=== PATIENT | female | born 1945 | race Caucasian/White ===

== ENCOUNTER 2020-10-12 12:27 | Emergency (ER) | payer MEDICARE, SELFPAY ==
[2020-10-12 12:35] VITALS: BP 155/58; PULSE 86; RESP 16; TEMP 36.6; O2SAT 96
[2020-10-12 13:00] VITALS: BP 173/93; PULSE 82; RESP 14; O2SAT 96
--- NOTE | 2020-10-12 13:23 | ECG_ITS ---
Measurements Intervals [place] Rate: 80 P: 56 NM: 132 QRS: 24 QRSD: 93 T: 38 QT: 390 QTc: 450 Interpretive Statements SINUS RHYTHM INCOMPLETE RIGHT BUNDLE BRANCH BLOCK MINIMAL Q WAVES- INFERIOR LEADS BORDERLINE ECG Electronically Signed On 10-12-2020 15:01:34 RECEIVING LEAD by Yan Carlin D.O.
[2020-10-12 13:50] LABS: Basophils Absolute Auto 0.03 K/mm3 (0.00-0.10); Basophils Percent Auto 0.3 % (0.0-1.0); Eosinophils Absolute Auto 0.11 K/mm3 (0.02-0.50); Hematocrit 40.9 % (35.0-42.0); Hemoglobin 13.8 g/dL (11.7-13.8); Immature Granulocyte Absolute 0.03 K/mm3 (0.00-0.00); Immature Granulocyte Percent A 0.3 % (0.0-0.0); Lymphocytes Absolute Auto 2.43 K/mm3 (1.10-4.50); Lymphocytes Percent Auto 22.8 % (18.0-42.0); Mean Corpuscular HGB Conc 33.7 g/dL (32.0-36.0); Mean Corpuscular Hemoglobin 29.9 pg (27.0-31.0); Mean Corpuscular Volume 88.5 fL (78.0-102.0); Mean Platelet Volume 10.4 fl (9.2-11.8); Monocytes Absolute Auto 0.67 K/mm3 (0.10-0.90); Monocytes Percent Auto 6.3 % (2.0-11.0); Neutrophils Absolute Auto 7.4 K/mm3 (1.7-7.2); Neutrophils Percent Auto 69.3 % (50.0-70.0); Platelet Count Result 237 K/mm3 (150-420); Red Blood Count 4.62 M/mm3 (4.20-5.40); Red Cell Distribution Width 13.2 % (11.6-14.4); White Blood Count 10.7 K/mm3 (4.8-10.8)
[2020-10-12 14:00] VITALS: BP 171/68; PULSE 78; RESP 17; O2SAT 95
[2020-10-12 14:12] LABS: Alanine Aminotransferase 26 U/L (14-59); Albumin Level 3.5 g/dL (3.4-5.0); Alkaline Phosphatase 61 U/L (46-116); Anion Gap 9 mmol/L (8-16); Aspartate Amino Transferase 13 U/L (15-37); Bilirubin,Total 0.4 mg/dL (0.00-1.00); Blood Urea Nitrogen 10 mg/dL (7-18); Calcium 8.9 mg/dL (8.5-10.1); Carbon Dioxide 27 mmol/L (21-32); Chloride 106 mmol/L (98-108); Estimated CRCL calculation 37 ml/min; Estimated Glomerular Filt Rate 58; Glucose 83 mg/dL (70-99); Magnesium 1.9 mg/dL (1.8-2.4); Osmolality Calculated 292 mOsm/kg (285-295); Potassium 3.4 mmol/L (3.5-5.1); Sodium 142 mmol/L (136-145); Thyroid Stimulating Hormone 1.61 uIU/mL (0.36-3.74); Total Protein 6.9 g/dL (6.4-8.2)
--- NOTE | 2020-10-12 14:29 | ED.DIZZY ---
HPI - Dizziness General Chief Complaint: Dizziness Stated Complaint: headache nausea dizzy pressure in head Source: patient and RN notes reviewed Mode of arrival: wheelchair Limitations: no limitations History of Present Illness MD elicited complaint: dizziness Onset (ago): day(s) (1) Timing: sudden onset Description: room spinning Context: change in body position History of similar symptoms: No Exacerbating factors: change in body position Relieving factors: remaining still and keeping eyes closed Associated symptoms: nausea and vomiting Related Data Home Medications Medication Instructions Recorded Confirmed atorvastatin 40 mg PO DAILY 10/12/20 10/12/20 hydrochlorothiazide 25 mg PO DAILY 10/12/20 10/12/20 Allergies Allergy/AdvReac Type Severity Reaction Status Date / Time morphine Allergy Severe LUNGS Verified 03/31/16 07:52 COLLAPSE Review of Systems Constitutional: Constitutional: Reports no additional constitutional complaints, Denies chills, Denies fever(s) and Denies weakness Eyes: Eyes: Reports no additional eye complaints ENT: Reports system reviewed and no additional complaints, except as documented Cardiovascular: Cardiovascular: Reports no additional cardiovascular complaints and Denies rapid heart rate Respiratory: Respiratory: Reports no additional respiratory complaints Gastrointestinal: Gastrointestinal: Reports as per HPI Genitourinary: Genitourinary: Reports no additional female genitourinary complaints Musculoskeletal: Musculoskeletal: Reports no additional musculoskeletal complaints Neurologic: Reports headache(s), Denies focal weakness and Denies numbness Psychiatric: Psychiatric: Reports no additional psychiatric complaints Endocrine: Endocrine: Reports no additional endocrine complaints Hematologic/Lymphatic: Hematologic/Lymphatic: Reports no additional hematologic/lymphatic complaints PMFSH Past Medical History Medical History (Updated 10/12/20 @ 16:47 by Janes Del Valle MD) Carotid stenosis Hyperlipidemia Hypertension Surgical History Surgical History (Updated 10/12/20 @ 16:47 by Janes Del Valle MD) History of hysterectomy Social History Social History (Updated 10/12/20 @ 16:47 by Janes Del Valle MD) Smoking status: Never smoker Exam Const: General: healthy appearing and no acute distress Nutritional Appearance: well nourished Orientation/consciousness: patient oriented x3 HENMT: Head: normal to inspection Ears: TM's normal bilaterally and external ear abnormal Face and sinus: normal facial exam Mouth: Yes moist mucous membranes Eyes: Conjunctivae: conjunctivae normal Pupils: Equal, round and reactive pupils present EOM: EOMs intact bilaterally Neck: Neck: normal visual inspection Resp: Effort & Inspection: normal respiratory effort Auscultation: clear to auscultation bilaterally Cardio: Rate: regular rate Rhythm: regular rhythm GI: GI Palp: Yes Soft to palpation and No Tenderness to palpation present (GI) Auscultation: normal bowel sounds Back/Spine/Pelvis: Cervical Spine: cervical ROM normal Thoracic/Lumbar Spine: thoraco-lumbar ROM normal Skin: General skin exam: normal color Rashes: no rashes Neuro: General: patient oriented x3, moves all extremities and no focal motor deficits Cranial nerves: Yes Nystagmus not present Speech: normal speech Gait exam (Neuro): Normal gait present Extrem: General: normal to inspection and no clubbing, cyanosis or edema Psych: Appearance: grossly normal and well kempt Mental Status: mental status grossly normal Affect: normal affect Attitude: cooperative Thought content: Yes Normal thought content present Course Vital Signs Vital signs: Vital Signs Temperature 36.6 C 10/12/20 12:35 Pulse Rate 86 10/12/20 12:35 Respiratory Rate 16 10/12/20 12:35 Blood Pressure 155/58 H 10/12/20 12:35 Pulse Oximetry 96 10/12/20 12:35 Temperature 36.6 C 10/12/20 12:35 Pulse
[2020-10-12] MEDS: MECLIZINE HCL 25 MG TABLET PO (14:34)
[2020-10-12 15:00] VITALS: BP 157/65; PULSE 73; RESP 20; O2SAT 98
[2020-10-12 15:27] VITALS: BP 169/58; PULSE 88; RESP 17; O2SAT 100
== END 2020-10-12 15:28 | disposition home or self-care (01) ==
PROVIDERS: Emergency Provider Emergency Medicine; PCP Family Medicine
DX: E87.6 Hypokalemia (principal); H81.10 Benign paroxysmal vertigo, unspecified ear; E78.5 Hyperlipidemia, unspecified; I10 Essential (primary) hypertension
CPT/HCPCS: 36415; 80053; 83735; 84443; 85025; 93005; 99283; A9270

== ENCOUNTER 2022-12-19 09:07 | Outpatient (CLI) | payer MEDICARE, SELFPAY ==
--- NOTE | ~2022-12-19 | DEXA_ITS ---
Bone Density Report Name: MANJINDER TROTTER Age: 77 Sex: Female Ethnicity: White Date of : 1945 Indication: postmenopausal; screening for osteoporosis; cancer; hysterectomy; Referring Provider: QuintinShamir Mitchell Study: Bone densitometry was performed. Exam Date: December 19, 2022 Accession number: [id number] Bone Density: Region BMD T-score Z-score Classification AP Spine(L1-L4) 0.655 -3.6 -1.1 Osteoporosis Femoral Neck (Left) 0.519 -3.0 -0.8 Osteoporosis Total Hip (Left) 0.654 -2.4 -0.5 Osteopenia Femoral Neck (Right) 0.512 -3.0 -0.9 Osteoporosis Total Hip (Right) 0.648 -2.4 -0.5 Osteopenia Femoral Neck Mean 0.516 -3.0 -0.8 Osteoporosis Total Hip Mean 0.651 -2.4 -0.5 Osteopenia World Health Organization criteria for BMD impression classify patients as: Normal (T-score at or above -1.0), Osteopenia (T-score between -1.0 and -2.5), or Osteoporosis (T-score at or below -2.5). 10-year Fracture Risk: FRAX not reported because: Some T-score for Spine Total or Hip Total or Femoral Neck at or below -2.5 Clinical Information Provided by Patient: Smokes Has used the following medications: Vitamin D Has the following medical conditions: Cancer, Hysterectomy Patient maximum height was 62 Menopause Age: 46 No regular weight bearing exercise Does not regularly consume dairy products Onset of menses at age 17 Number of children 5 Impression: The patient has osteoporosis, based on the Total Spine T-score. The patient has risk factors, including: smoking. Discussion: INCREASED RISK OF FRACTURE. BONE DENSITY IS UNDESIRABLY LOW AT ONE OR MORE SKELETAL SITES, CONSISTENT WITH POSTMENOPAUSAL OSTEOPOROSIS. This patient's lowest T-score meets the World Health Organization's (WHO) criteria for osteoporosis at one or more sites (T-score -2.5 or below). In untreated patients, the risk of osteoporotic fracture increases approximately two-fold for each 1.0 SD decrease in T-score. Low bone density is not the only risk factor for fracture; also consider factors such as patient's age, frailty or poor health, risk of falling, risk of injury, previous osteoporotic fracture, family history of osteoporosis, cigarette smoking, low body weight, etc. Not everyone with low bone mineral density has osteoporosis; osteomalacia and other metabolic bone disorders should also be considered. Patients who have osteoporosis should be evaluated for specific diseases and conditions (secondary causes) that may cause or contribute to bone loss. The [place] Association [employer] Clinical Endocrinologists (AACE) and National Osteoporosis Foundation (NOF) recommend pharmacologic intervention for all postmenopausal women whose T-score is in this range. The patient should follow a healthful lifestyle (good nutrition with adequate calcium an
== END 2022-12-19 09:08 | disposition home or self-care (01) ==
LOC: CHSIMG 09:10
PROVIDERS: PCP Family Medicine; Visit Provider Family Medicine
DX: Z78.0 Asymptomatic menopausal state (principal); M85.89 Other specified disorders of bone density and structure, multiple sites; M81.0 Age-related osteoporosis without current pathological fracture
CPT/HCPCS: 77080

== ENCOUNTER 2022-12-27 13:33 | Outpatient (CLI) | payer MEDICARE, SELFPAY ==
--- NOTE | ~2022-12-27 | CT_ITS ---
EXAMINATION: CT lung screening DATE: 12/27/2022 13:50 INDICATION: Personal history of nicotine dependence, current smoker with 27 pack year history TECHNIQUE: Computed tomography (CT) of the chest was performed without intravenous contrast. The dose -length product (DLP) was 53.16 mGy-cm. Automated exposure control and iterative reconstruction techn [employer] were employed. COMPARISON: None FINDINGS: There are multiple bilateral pulmonary nodules. The largest measure 5 mm in the left lower lobe on images 52 and 55. The lungs are free of acute opacities. No pleural effusion or pneumothorax. No pathologically enlarged thoracic lymph nodes are identified. The heart size is normal. There is a 2.6 cm cyst of the left kidney. There is mild thoracic spondylosis. IMPRESSION: 1. Lung-RADS category 2: Benign appearance or behavior. Continue annual screening with noncontrast lo w-dose chest CT in 12 months. Reviewed, dictated and finalized at location B. R TAKERS SUPERVISOR IMPRESSION: 1. Lung-RADS category 2: Benign appearance or behavior. Continue annual screeni ng with noncontrast low-dose chest CT in 12 months.
== END 2022-12-27 13:34 | disposition home or self-care (01) ==
LOC: CHSIMG 13:35
PROVIDERS: PCP Family Medicine; Visit Provider Family Medicine
DX: Z12.2 Encounter for screening for malignant neoplasm of respiratory organs (principal); Z87.891 Personal history of nicotine dependence
CPT/HCPCS: 71271

== ENCOUNTER 2024-04-10 07:54 | Outpatient (CLI) | payer MEDICARE, SELFPAY ==
--- NOTE | ~2024-04-10 | CT_ITS ---
CT Scan of the Chest without Contrast: Clinical Indication: Pulmonary nodule Technique: Contiguous sections were acquired throughout the chest without intravenous contrast. Dose reduction technique was used on this scan by utilizing automated exposure control and iterative recon struction technique. The dose-length product (DLP) was 60.15 mGy-cm. COMPARISON: 12/27/2022 Findings: There is no evidence of any significant mediastinal, hilar or axillary lymphadenopathy. There are ath erosclerotic calcifications of the aorta. There is no evidence of pleural or pericardial effusion. There is stable small subcentimeter pulmonary nodules peripherally in the right upper lobe. Stable 4 mm right middle lobe pulmonary nodule. Stable additional 3 mm inferior right middle lobe pulmonary no dule. Stable 5 mm left lower lobe pulmonary nodule. Images through the upper abdomen reveal no abnormalities. Impression: Stable subcentimeter pulmonary nodules, as detailed above, most likely benign. Reviewed, dictated and finalized at [facility]. Impression: Stable subcentimeter pulmonary nodules, as detailed above, most likely benign.
== END 2024-04-10 07:55 | disposition home or self-care (01) ==
LOC: CHSIMG 07:57
PROVIDERS: PCP Family Medicine; Visit Provider Family Medicine
DX: R91.8 Other nonspecific abnormal finding of lung field (principal)
CPT/HCPCS: 71250

== ENCOUNTER 2024-10-09 09:48 | Outpatient (CLI) | payer MEDICARE, SELFPAY ==
--- NOTE | ~2024-10-09 | CT_ITS ---
EXAMINATION:CT diagnostic chest wo con DATE: 10/09/2024 10:04 INDICATION: Pulmonary nodules. TECHNIQUE: Computed tomography (CT) of the chest was performed without intravenous contrast. Automate d exposure control and iterative reconstruction technique were employed. The dose-length product (DLP ) was 55.15 mGy-cm. COMPARISON: Chest CT 04/10/2024, 12/27/2022 FINDINGS: There is a 4 mm nodule at minor fissure, stable from 12/27/22. There are multiple scattered nodules in the lungs measuring up to 3 mm. There is a 5 mm nodule in left lower lobe, stable from 11/29 12/19. No pleural effusion. The heart size is normal. No pericardial effusion. There is a 2.7 cm cyst in left kidney. There is mild thoracic spondylosis. IMPRESSION: 1. Lung-RADS category 2: Benign appearance or behavior. Continue annual screening with noncontrast lo w-dose chest CT in 12 months. Reviewed, dictated and finalized at location A. NURSE IMPRESSION: 1. Lung-RADS category 2: Benign appearance or behavior. Continue annual screeni ng with noncontrast low-dose chest CT in 12 months.
== END 2024-10-09 09:49 | disposition home or self-care (01) ==
LOC: CHSIMG 09:51
PROVIDERS: PCP Family Medicine; Visit Provider Family Medicine
DX: R91.8 Other nonspecific abnormal finding of lung field (principal)
CPT/HCPCS: 71250

== ENCOUNTER 2025-01-21 10:23 | Outpatient (CLI) | payer MEDICARE, SELFPAY ==
--- OUTSIDE RECORDS SUMMARY | 2025-01-21 12:09 | XMS_ITS | Clinical Summary ---
Author Organization [facility] Address [address] [place] [address] Care Team Providers Care [place] [employer] Name Role Phone Shamir Ribeiro MD Primary Care Provider [phone] Allergies Active Allergy Reactions Criticality Noted Date Comments Morphine Unknown 06/28/2023 Medications cetirizine (ZYRTEC) 10 MG tablet Take 1 tablet (10 mg total) by mouth daily. Active LACTOSE ANHYDROUS by Does not apply route as needed. Active Vitamin D3 (CHOLECALCIFERO L) 50 mcg tablet Take 1 tablet (50 mcg total) by mouth daily. Active atorvastatin (LIPITOR) 40 MG tablet Take 1 tablet (40 mg total) by mouth nightly at bedtime. Active hydroCHLOROthia zide (HYDRODIURIL) 25 MG tablet Take 1 tablet (25 mg total) by mouth every morning. Active vitamin ( PLUS) 27-1 MG tablet Take 1 tablet by mouth daily. Active lactobacillus (FLORANEX) tablet Take 1 tablet by mouth daily. Active Active Problems Problem Noted Date Diagnosed Date Trochanteric bursitis of left hip 10/30/2023 Sebaceous cyst 06/28/2023 Overview (06/28/2023): Added automatically from request for surgery [id number] Hyperlipidemia 06/26/2023 Family History Medical History Relation Comments Cancer Brother 2 Cancer Brother 3 Heart Attack Brother 4 Cancer Father Heart Attack Mother No Known Problems Sister 1 No Known Problems Sister 2 Relation Status Comments Brother 1 Brother 2 Brother 3 Brother 4 Alive Brother 5 Alive Father Mother Sister 1 Alive Sister 2 Alive Social History Tobacco Use Types Packs/Day Years Used Date Smoking Tobacco: Every Day Cigarettes Smokeless Tobacco: Never Tobacco Cessation:Ready to Q uit: Not Asked; Counseling Given: Not Answered Alcohol Use Standard Drinks/Week Comments Yes 0 (1 standard drink = 0.6 oz pur e alcohol) occ. Comments No Sex and Gender Information Value Date Recorded Sex Assigned at Female 10/04/2023 12:37 PM CREATIVE ARTS MUSIC THERAPIST Legal Sex Female 9:39 PM CDT Gender Identity Female 10/04/2023 12:37 PM CREATIVE ARTS MUSIC THERAPIST Sexual Orientation Straight 10/04/2023 12 :37 PM CREATIVE ARTS MUSIC THERAPIST Last Filed Vital Signs Vital Sign Reading Time Taken Comments Blood Pressure 188/60 07/06/2023 10:22 AM CDT Pulse 68 07/06/2023 10:22 AM CDT Temperature 35.7 C (96.2 F) 07/06/2023 10:22 AM CDT Respiratory Rate 20 07/06/2023 10:22 AM CDT Oxygen Saturation 99% 07/06/2023 10:22 AM CDT Inhaled Oxygen Concentration - - Weight 63.5 kg (140 lb) 10/10/2023 9:36 AM CREATIVE ARTS MUSIC THERAPIST Height 157.5 cm (5' 2 ) 10/10/2023 9:36 AM CREATIVE ARTS MUSIC THERAPIST Body Mass Index 25.61 10/10/2023 9:36 AM CREATIVE ARTS MUSIC THERAPIST Plan of Treatment Health Maintenance Due Date Last Done Comments PHQ-2 ([facility]) 1957 Hepatitis C 01/31/1964 Zoster Vaccines (1 of 2) 01/31/1996 Annual Medicare Wellness Visit 2011 Dexa Scan (General) 2011 Pneumococcal Vaccine: 65+ Years (2 of 2 - PCV) 12/21/2018 12/21/2017, 05/01/2012 RSV Immunization or 60+ Years (1 - 1-dose 75+ series) 2021 COVID-19 Vaccine (3 - 2023-2 5 season) 2024 01/28/2021, 12/31/2020 Influenza Adult (#1) 2024 PHQ-2 ([facility]) 11/27/2024 DTaP, Tdap and Td Vaccines ( 2 - Td or Tdap) 03/28/2026 03/28/2016 Meningococcal B Vaccine Aged Out No l onger eligible based on patient's age to complete this topic Meningococcal Vaccine Aged Out No neeru aletha eligible based on patient's age to complete this topic RSV Immunizations Under 20 Months Aged Out No longer eligible b ased on patient's age to complete this topic Insurance AET MEDICARE Care Teams [place] Superintendent [employer] Relationship Specialty Start Date End Date Shamir Ribeiro MD [address] [place] [address] PCP - General FAMILY PRACTICE 06/22/23
--- OUTSIDE RECORDS SUMMARY | 2025-01-21 12:09 | XMS_ITS | Encounter Summary ---
Author Organization [facility] Address [address] [place] [address] Care Team Providers Care Executive Kitchen Manager Name Role Phone Shamir Ribeiro MD Primary Care Provider [phone] Encounter Details Date Type Department Care Team (Late st Contact Info) Description 05/04/2019 Abstract SFL CONVERSION [address] [place] [address] , Generic Conversion, Social History Tobacco Use Types Packs/Day Years Used Date Smoking Tobacco: Former Comments Unknown Sex and Gender Information Value Date Recorded Sex Assigned at Female 10/04/2023 12:37 PM CARDIOVASCULAR LAB DIRECTOR Legal Sex Female 9:39 PM CDT Gender Identity Female 10/04/2023 12:37 PM CARDIOVASCULAR LAB DIRECTOR Sexual Orientation Straight 10/04/2023 12 :37 PM CARDIOVASCULAR LAB DIRECTOR documented as of this encounter Plan of Treatment Not on file documented as of this encounter Visit Diagnoses Not on filedocumented in this encounter Care Teams Executive Kitchen Manager Relationship Specialty Start Date End Date Shamir Ribeiro MD [address] [place] [address] PCP - General FAMILY PRACTICE 06/22/23 documented as of this encounter
--- OUTSIDE RECORDS SUMMARY | 2025-01-21 12:09 | XMS_ITS | Patient Health Record ---
Author Organization [facility] Address [address] [place] [address] Care Team Providers Care Dispatcher Automobile Rental Name Role Phone Chi Rodney Primary Care Provider Reason For Referral No Information Immunizations Vaccine Route Administration Date Status Comme nts COVID-19 Moderna 2nd IM Intramuscular 01/28/2021 Administered Patient tolerat ed well COVID-19 Moderna 1ST IM Intramuscular 12/31/2020 Administered EUA date 0. Screening reviewed and consent signed. Patient tolerated well. Plan Of Treatment No Information Insurance Providers Payer Name Payer Address Payer Phone Subscriber Number Group Number Insured Name Patient Relationship to Insured Coverage Start Date Coverage End Date Aetna [address] [place] [phone] [id number] Alycia Olivier Self - patient is the insured 2020
== END 2025-01-21 10:24 | disposition home or self-care (01) ==
PROVIDERS: PCP Family Medicine; Visit Provider Family Medicine
DX: R05.9 Cough, unspecified (principal); Z76.89 Persons encountering health services in other specified circumstances; R94.2 Abnormal results of pulmonary function studies
CPT/HCPCS: 94060; 94726; 94729

== ENCOUNTER 2025-01-24 13:48 | Outpatient (CLI) | payer MEDICARE, SELFPAY | END 2025-01-24 13:49 | disposition home or self-care (01) | PROVIDERS: PCP Family Medicine; Visit Provider Family Medicine | DX: Z78.0 Asymptomatic menopausal state (principal); R05.9 Cough, unspecified; M81.0 Age-related osteoporosis without current pathological fracture | CPT/HCPCS: 71046; 77080 ==

== ENCOUNTER 2025-08-05 12:01 | Outpatient (CLI) | payer MEDICARE, SELFPAY ==
--- NOTE | 2025-08-05 12:11 | ECHO_ITS ---
Patient Info Name: Alycia Viera Age: 80 years : 1945 Gender: Female Ht: 62 in Wt: 136 lbs BSA: 1.65 m2 HR: 75 bpm BP: 160 / 65 mmHg Technical Quality: Good Exam Date: 08/05/2025 12:26 PM Patient Status: O Admit Date: 08/05/2025 Exam Type: CA echo doppler color flow Complete two-dimensional, color flow and Doppler transthoracic echocardiogram is performed. Principal Systems Engineer: Marj Jefferson Attending Provider: Shamir Ribeiro Summary 1. Complete two-dimensional, color flow and Doppler transthoracic echocardiogram is performed. 2. Left ventricular systolic function is normal, estimated at 60-65. 3. There is mild concentric increased left ventricular wall thickness. 4. The left ventricular diastolic function is grade I diastolic dysfunction. 5. Left ventricular chamber dimension is normal. 6. E/e' 12 is mildly elevated. 7. The aortic valve is not well visualized. Cannot determine number of aortic valve leaflets. 8. There is moderate aortic valve sclerosis. 9. There is mild to moderate aortic valve stenosis based on a peak velocity of 308 cm/s, mean gradient of 20 mmHg, and aortic valve area of 1.2 cm2. 10. There is mild to moderate aortic valve regurgitation. 11. There is trace tricuspid valve regurgitation. Left Ventricle Left ventricular chamber dimension is normal. Left ventricular systolic function is normal, estimated at 60-65. There is mild concentric increased left ventricular wall thickness. The left ventricular diastolic function is grade I diastolic dysfunction. E/e' 12 is mildly elevated. Right Ventricle Right ventricular chamber dimension is normal. Right ventricular systolic function is normal. Left Atria Left atrial chamber dimension is normal. Right Atria Right atrial chamber dimension is normal. Aortic Valve The aortic valve is not well visualized. Cannot determine number of aortic valve leaflets. There is moderate aortic valve sclerosis. There is mild to moderate aortic valve stenosis based on a peak velocity of 308 cm/s, mean gradient of 20 mmHg, and aortic valve area of 1.2 cm2. There is mild to moderate aortic valve regurgitation. Pulmonic Valve There is no pulmonic regurgitation. Mitral Valve There is no mitral valve stenosis. There is no mitral valve regurgitation. Tricuspid Valve There is trace tricuspid valve regurgitation. RVSP is not measured due to an inadequate TR jet. Pericardium/Pleural There is no pericardial effusion. Inferior Vena Cava Normal inferior vena cava with >50% collapse upon inspiration consistent with normal right atrial pressure, 5 mmHg. Aorta The aortic root size at the sinus of Valsalva is normal. Left Ventricular Outflow Tract Name Value Normal LVOT 2D LVOT Diameter 2.0 cm LVOT Doppler LVOT Peak Velocity 120 cm/s LVOT Peak Gradient 4 mmHg LVOT Mean Gradient 2 mmHg LVOT VTI 30 cm LVOT VTI/AV VTI Ratio 0.4 LVOT Stroke Volume 95 ml LVOT CO 5.9 l/min LVOT CI 3.6 l/min/m2 Pulmonic Valve Name Value Normal RVOT Doppler RVOT Peak Velocity 66 cm/s RVOT Peak Gradient 2 mmHg PV Doppler PV Peak Velocity 78 cm/s PV Peak Gradient 2 mmHg Mitral Valve Name Value Normal MV Diastolic Function MV E Peak Velocity 84 cm/s MV A Peak Velocity 142 cm/s MV E/A 0.6 MV Decel Time (PW) 473 ms MV Annular TDI MV E/e' (Septal) 14.2 MV E/e' (Lateral) 11.8 MV E/e' (Average) 13.0 Tricuspid Valve Name Value Normal Estimated PAP/RSVP RA Pressure 5 mmHg <=5 Aortic Valve Name Value Normal AV Doppler AV Peak Velocity 308 cm/s AV Peak Gradient 27 mmHg AV Mean Gradient 20 mmHg AV VTI 83 cm AV Area (Cont Eq VTI) 1.2 cm2 >=3.0 AV Area (Cont Eq Sotero) 1.2 cm2 AV DI (Sotero) 0.39 AV Regurgitation 2D LVOT Area 3.1 cm2 Ventricles Name Value Normal LV Dimensions 2D/MM IVS Diastolic Thickness (2D) 1.2 cm 0.6-1.0 LVID Diastole (2D) 4.0 cm 3.8-5.2 LVIW Diastolic Thickness (2D) 1.3 cm 0.6-0.9 LVID Systole (2D) 2.9 cm 2.2-3.5 LVOT Diameter 2.0 cm LV Mass (2D Cubed) 183.80 g 67.00-162.00 LV Mass Index (2D Cubed) 111 g/m2 43-95 Relative Wall Thickness (2D) 0.64 <=0.42 LV Fractional Shortening/Ejection Fraction 2D/MM LV Fractional Shortening (2D) 29 % 27-45 LV EF (2D Teichholz) 56 % LV Diastolic Volume (4C MOD) 62 ml LV EF (4C MOD) 56 % LV Diastolic Volume (2C MOD) 82 ml LV EF (2C MOD) 68 % LV Diastolic Volume (BP MOD) 72 ml 46-106 LV Diastolic Volume Index (BP MOD) 44 ml/m2 29-61 LV Systolic Volume (BP MOD) 27 ml 14-42 LV Systolic Volume Index (BP MOD) 16 ml/m2 8-24 LV EF (BP MOD) 63 % 54-74 LV Diastolic Length (4C) 7.3 cm LV Systolic Length (4C) 6.3 cm LV Stroke Volume (4C MOD) 34 ml Atria Name Value Normal LA Dimensions LA Volume (4C A-L) 26 ml LA Volume (BP A-L) 33 ml RA Dimensions RA Systolic Major Copeland Length (4C) 3.2 cm 2.2-2.8 RA Area (4C) 6.8 cm2 <=18.0 Report Signatures
--- OUTSIDE RECORDS SUMMARY | 2025-08-05 13:39 | XMS_ITS | Patient Health Record ---
Author Organization [facility] Address [address] [place] [address] Care Team Providers Care Manager Local Name Role Phone Chi Rodney Primary Care Provider Reason For Referral No Information Immunizations Vaccine Route Administration Date Status Comme nts COVID-19 Moderna 1ST IM Intramuscular 12/31/2020 Administered EUA date 0. Screening reviewed and consent signed. Patient tolerated well. COVID-19 Moderna 2nd IM Intramuscular 01/28/2021 Administered Patient tolerat ed well Plan Of Treatment No Information Insurance Providers Payer Name Payer Address Payer Phone Subscriber Number Group Number Insured Name Patient Relationship to Insured Coverage Start Date Coverage End Date Aetna [address] [place] [phone] [id number] Alycia Olivier Self - patient is the insured 2020
== END 2025-08-05 12:02 | disposition home or self-care (01) ==
PROVIDERS: PCP Family Medicine; Visit Provider Family Medicine
DX: R01.1 Cardiac murmur, unspecified (principal); I35.1 Nonrheumatic aortic (valve) insufficiency; I35.8 Other nonrheumatic aortic valve disorders
CPT/HCPCS: 93306

== ENCOUNTER 2025-10-14 10:59 | Outpatient (CLI) | payer MEDICARE, SELFPAY ==
--- NOTE | ~2025-10-14 | XR_ITS ---
EXAMINATION: XR chest 2V, 10/14/2025 11:30 SURGICAL TECHNOLOGIST HISTORY: PNEUMONIA COMPARISON: No comparisons available. Technique: 2 views obtained. Findings: The lungs are clear, no effusion. No pneumothorax. Heart is normal size. Mediastinal and hilar contours are within normal limits. Bony thorax no acute abnormality. Impression: No acute cardiopulmonary abnormality. Reviewed, dictated and finalized at location P. ICAL TECHNOLOGIST Impression: No acute cardiopulmonary abnormality.
== END 2025-10-14 11:00 | disposition home or self-care (01) ==
PROVIDERS: PCP Family Medicine; Visit Provider Family Medicine
DX: J18.9 Pneumonia, unspecified organism (principal)
CPT/HCPCS: 71046